=== PATIENT | male | born 1960 | race Caucasian/White ===

== ENCOUNTER → 2016-11-21 | Outpatient (CLI) | payer OTHER | LOC: NM 06:50 → EDBD 07:55 | DX: L03.116 Cellulitis of left lower limb (principal); R93.7 Abnormal findings on diagnostic imaging of other parts of musculoskeletal system | CPT/HCPCS: 78315; A9503 ==

== ENCOUNTER 2020-12-04 11:46 | Emergency (ER) | payer OTHER | END 2020-12-04 15:15 | disposition home or self-care (01) | LOC: ER1 11:46 | DX: S81.811A Laceration without foreign body, right lower leg, initial encounter (principal); S93.401A Sprain of unspecified ligament of right ankle, initial encounter; S80.01XA Contusion of right knee, initial encounter; X58.XXXA Exposure to other specified factors, initial encounter; I10 Essential (primary) hypertension; Z88.0 Allergy status to penicillin; Y92.009 Unspecified place in unspecified non-institutional (private) residence as the place of occurrence of the external cause; Z23 Encounter for immunization | CPT/HCPCS: 12004; 71100; 73562; 73590; 73610; 90471; 90715; 99283 ==

== ENCOUNTER → 2021-10-03 | Outpatient (CLI) | payer OTHER | LOC: CT 08:54 | DX: R41.3 Other amnesia (principal); R25.1 Tremor, unspecified; H53.9 Unspecified visual disturbance | CPT/HCPCS: 36415; 70470; 82565; 84520; Q9967 ==

== ENCOUNTER → 2021-10-25 | Outpatient (CLI) | payer OTHER | LOC: EXRD 15:16 | DX: R06.02 Shortness of breath (principal) | CPT/HCPCS: 71046 ==

== ENCOUNTER → 2021-10-25 | Outpatient (CLI) | payer OTHER | LOC: HEART 5 13:57 | DX: R06.00 Dyspnea, unspecified (principal) | CPT/HCPCS: 94010 ==